=== PATIENT | male | born 1975 | race Caucasian/White ===

== ENCOUNTER 2022-11-03 12:42 | Inpatient (IN) | payer OTHER ==
[2022-11-03 13:25] VITALS: BMI 20.9
[2022-11-03] MEDS ORDERED: MAG HYDROX/AL HYDROX/SIMETH 30 ML UNIT-DOSE CUP PO PRN (13:57)
[2022-11-03] MEDS ORDERED: NICOTINE 10 MG CARTRIDGE (INHALER) IH PRN (13:57)
[2022-11-03] MEDS ORDERED: IBUPROFEN 600 MG TABLET (FP) PO PRN (13:57)
[2022-11-03] MEDS ORDERED: NICOTINE 14 MG/24 HOURS TOPICAL PATCH TD PRN (13:57)
[2022-11-03] MEDS ORDERED: NICOTINE POLACRILEX 2 MG GUM BC PRN (13:57)
[2022-11-03] MEDS ORDERED: IBUPROFEN 400 MG TABLET (FP) PO PRN (13:57)
[2022-11-03] MEDS ORDERED: POLYETHYLENE GLYCOL (HEALTHYLAX) 3350 17 GM PACKET PO PRN (13:57)
[2022-11-03] MEDS ORDERED: ACETAMINOPHEN 325 MG TABLET (FP) PO PRN (13:57)
[2022-11-03] MEDS ORDERED: MAGNESIUM HYDROX 2400MG/30ML ORAL SUSPENSION 30 ML CUP PO PRN (13:57)
[2022-11-03] MEDS ORDERED: LOPERAMIDE HCL 2 MG CAPSULE PO PRN (13:57)
[2022-11-03] MEDS ORDERED: BENZOCAINE/MENTHOL (CHLORASEPTIC ) LOZENGE MM PRN (13:57)
[2022-11-03] MEDS ORDERED: BENZONATATE 200 MG CAPSULE PO PRN (13:57)
[2022-11-03] MEDS ORDERED: guaiFENesin 600 MG TABLET.ER (FP) PO PRN (13:57)
[2022-11-03] MEDS ORDERED: hydrOXYzine PAMOATE 25 MG CAPSULE (FP) PO PRN (13:57)
[2022-11-03 17:18] LABS: HEMATOCRIT 44.7 % (35.4-49); HEMOGLOBIN 15.4 GM/dL (11.7-16.9); MCH 32.3 pg (25.7-33.7); MCHC 34.4 g/dl (32.0-35.9); MEAN CELL VOLUME 93.9 fl (80-96); MEAN PLT VOLUME 9.6 fl (7.5-11.1); PLATELET COUNT 307 10^3/uL (134-434); RBC 4.76 M/mm3 (4.00-5.60); RDW 14.1 % (11.9-15.9); WHITE BLOOD COUNT 7.5 K/mm3 (4.0-10.0)
[2022-11-03 17:49] LABS: ALBUMIN 3.4 g/dl (3.4-5.0)
[2022-11-03 17:51] LABS: BLOOD UREA NITROGEN 10.1 mg/dL (7-18); CALCIUM 9.4 mg/dL (8.5-10.1)
[2022-11-03 17:52] LABS: CREATININE 0.8 mg/dL (0.55-1.3)
[2022-11-03 17:54] LABS: BILIRUBIN,TOTAL 0.4 mg/dL (0.2-1)
[2022-11-03 18:03] LABS: SYPHILIS W/ RPR CONF NON-REACTIVE (NONREACTIVE)
[2022-11-03] MEDS: MELATONIN 5 MG TABLETS PO SCH (21:32)
[2022-11-03] MEDS: THIAMINE HCL 100 MG TABLET (FP) PO SCH (21:32)
[2022-11-04] MEDS: PRENATAL VITAMINS W/ FOLIC ACID TABLET (FP) PO SCH (10:23)
[2022-11-04] MEDS ORDERED: ONDANSETRON *ODT* 4 MG TABLET SL PRN (13:02)
[2022-11-04 13:08] LABS: PH,URINE 8.5 (5.0-8.0); URINE APPEARANCE TURBID; URINE BILIRUBIN NEGATIVE (NEGATIVE); URINE COLOR YELLOW; URINE GLUCOSE (UA) NEGATIVE (NEGATIVE); URINE KETONE NEGATIVE (NEGATIVE); URINE LEUK ESTERASE NEGATIVE (NEGATIVE); URINE NITRITE NEGATIVE (NEGATIVE); URINE PROTEIN TRACE (NEGATIVE)
[2022-11-04] MEDS: HALOPERIDOL 5 MG TABLET PO SCH (21:31)
[2022-11-04] MEDS: THIAMINE HCL 100 MG TABLET (FP) PO SCH (21:31)
[2022-11-04] MEDS: MELATONIN 5 MG TABLETS PO SCH (21:31)
[2022-11-05] MEDS: HALOPERIDOL 5 MG TABLET PO SCH ×2 (10:09→21:06)
[2022-11-05] MEDS: PRENATAL VITAMINS W/ FOLIC ACID TABLET (FP) PO SCH (10:09)
[2022-11-05] MEDS: MELATONIN 5 MG TABLETS PO SCH (21:06)
[2022-11-05] MEDS: THIAMINE HCL 100 MG TABLET (FP) PO SCH (21:06)
[2022-11-06] MEDS: PRENATAL VITAMINS W/ FOLIC ACID TABLET (FP) PO SCH (09:57)
[2022-11-06] MEDS: HALOPERIDOL 5 MG TABLET PO SCH ×2 (09:57→22:22)
[2022-11-06] MEDS: MELATONIN 5 MG TABLETS PO SCH (22:21)
[2022-11-06] MEDS: THIAMINE HCL 100 MG TABLET (FP) PO SCH (22:22)
[2022-11-07] MEDS: HALOPERIDOL 5 MG TABLET PO SCH ×2 (10:46→21:21)
[2022-11-07] MEDS: PRENATAL VITAMINS W/ FOLIC ACID TABLET (FP) PO SCH (10:46)
[2022-11-07] MEDS: THIAMINE HCL 100 MG TABLET (FP) PO SCH (21:20)
[2022-11-07] MEDS: MELATONIN 5 MG TABLETS PO SCH (21:21)
[2022-11-08] MEDS: HALOPERIDOL 5 MG TABLET PO SCH ×2 (09:50→21:28)
[2022-11-08] MEDS: PRENATAL VITAMINS W/ FOLIC ACID TABLET (FP) PO SCH (09:50)
[2022-11-08] MEDS: THIAMINE HCL 100 MG TABLET (FP) PO SCH (21:28)
[2022-11-08] MEDS: MELATONIN 5 MG TABLETS PO SCH (21:28)
[2022-11-09] MEDS: HALOPERIDOL 5 MG TABLET PO SCH ×2 (09:40→21:14)
[2022-11-09] MEDS: PRENATAL VITAMINS W/ FOLIC ACID TABLET (FP) PO SCH (09:40)
[2022-11-09] MEDS: MELATONIN 5 MG TABLETS PO SCH (21:14)
[2022-11-09] MEDS: THIAMINE HCL 100 MG TABLET (FP) PO SCH (21:14)
[2022-11-10] MEDS: HALOPERIDOL 5 MG TABLET PO SCH ×2 (10:22→21:17)
[2022-11-10] MEDS: PRENATAL VITAMINS W/ FOLIC ACID TABLET (FP) PO SCH (10:22)
[2022-11-10] MEDS: MELATONIN 5 MG TABLETS PO SCH (21:17)
[2022-11-10] MEDS: THIAMINE HCL 100 MG TABLET (FP) PO SCH (21:17)
[2022-11-11] MEDS: HALOPERIDOL 5 MG TABLET PO SCH ×2 (09:05→21:41)
[2022-11-11] MEDS: PRENATAL VITAMINS W/ FOLIC ACID TABLET (FP) PO SCH (09:05)
[2022-11-11] MEDS: THIAMINE HCL 100 MG TABLET (FP) PO SCH (21:41)
[2022-11-11] MEDS: MELATONIN 5 MG TABLETS PO SCH (21:41)
[2022-11-12] MEDS: PRENATAL VITAMINS W/ FOLIC ACID TABLET (FP) PO SCH (09:57)
[2022-11-12] MEDS: HALOPERIDOL 5 MG TABLET PO SCH ×2 (09:57→21:46)
[2022-11-12] MEDS: THIAMINE HCL 100 MG TABLET (FP) PO SCH (21:46)
[2022-11-12] MEDS: MELATONIN 5 MG TABLETS PO SCH (21:46)
[2022-11-13] MEDS: HALOPERIDOL 5 MG TABLET PO SCH ×2 (10:09→21:32)
[2022-11-13] MEDS: PRENATAL VITAMINS W/ FOLIC ACID TABLET (FP) PO SCH (10:09)
[2022-11-13] MEDS: THIAMINE HCL 100 MG TABLET (FP) PO SCH (21:32)
[2022-11-13] MEDS: MELATONIN 5 MG TABLETS PO SCH (21:32)
[2022-11-14] MEDS: HALOPERIDOL 5 MG TABLET PO SCH ×2 (09:37→21:23)
[2022-11-14] MEDS: PRENATAL VITAMINS W/ FOLIC ACID TABLET (FP) PO SCH (09:37)
[2022-11-14] MEDS: MELATONIN 5 MG TABLETS PO SCH (21:23)
[2022-11-14] MEDS: THIAMINE HCL 100 MG TABLET (FP) PO SCH (21:23)
[2022-11-15] MEDS: HALOPERIDOL 5 MG TABLET PO SCH ×2 (10:13→22:14)
[2022-11-15] MEDS: PRENATAL VITAMINS W/ FOLIC ACID TABLET (FP) PO SCH (10:13)
[2022-11-15] MEDS: MELATONIN 5 MG TABLETS PO SCH (22:14)
[2022-11-15] MEDS: THIAMINE HCL 100 MG TABLET (FP) PO SCH (22:14)
[2022-11-16 07:11] VITALS: TEMP 97.5
[2022-11-16] MEDS: HALOPERIDOL 5 MG TABLET PO SCH ×2 (09:48→23:15)
[2022-11-16] MEDS: PRENATAL VITAMINS W/ FOLIC ACID TABLET (FP) PO SCH (09:48)
[2022-11-16] MEDS: THIAMINE HCL 100 MG TABLET (FP) PO SCH (23:15)
[2022-11-16] MEDS: MELATONIN 5 MG TABLETS PO SCH (23:15)
[2022-11-17 07:28] VITALS: BP 98/67; PULSE 62; RESP 18
[2022-11-17] MEDS: PRENATAL VITAMINS W/ FOLIC ACID TABLET (FP) PO SCH (09:07)
[2022-11-17] MEDS: HALOPERIDOL 5 MG TABLET PO SCH (09:07)
== END 2022-11-17 09:22 | disposition home or self-care (01) | DRG 895 ==
LOC: YASAS 12:42 → Y3W 15:34
PROVIDERS: ADMIT Allergy & Immunology; ATTEND Psychiatry & Neurology Pain Medicine
PROC: HZ42ZZZ Group Counseling for Substance Abuse Treatment, Cognitive-Behavioral (ICD-10-PCS; principal; 2022-11-03)
DX: F14.120 Cocaine abuse with intoxication, uncomplicated (principal); F12.20 Cannabis dependence, uncomplicated; F17.210 Nicotine dependence, cigarettes, uncomplicated; F31.9 Bipolar disorder, unspecified; F20.9 Schizophrenia, unspecified; R76.11 Nonspecific reaction to tuberculin skin test without active tuberculosis; R12 Heartburn; R63.4 Abnormal weight loss; Z68.20 Body mass index [BMI] 20.0-20.9, adult; Z28.310 Unvaccinated for COVID-19; Z28.9 Immunization not carried out for unspecified reason; Z56.0 Unemployment, unspecified; Z59.00 Homelessness unspecified
CPT/HCPCS: 36415; 71046-TC-FY; 80053; 81003; 85027; 86780; 86803; 87811; 93005; 93010; C9803-CS; U0003; U0005